=== PATIENT | male | born 1940 | race Caucasian/White ===

== ENCOUNTER 2017-06-02 06:51 | Emergency (ER) | payer OTHER ==
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
[2017-06-02] MEDS ORDERED: LET GEL TOPICAL 1 EA SYR TP ONE ×2 (06:56→07:05)
[2017-06-02] MEDS ORDERED: CEPHALEXIN 500 MG CAP PO ONE (07:03)
[2017-06-02 07:04] VITALS: RESP 18
[2017-06-02 07:36] VITALS: BP 155/78; PULSE 82; TEMP 98.1; O2SAT 96
== END 2017-06-02 07:39 | disposition home or self-care (01) ==
LOC: CED 06:51
PROC: 0HQCXZZ Repair Left Upper Arm Skin, External Approach (ICD-10-PCS; principal; 2017-06-02)
DX: S41.112A Laceration without foreign body of left upper arm, initial encounter (principal); I10 Essential (primary) hypertension; F17.210 Nicotine dependence, cigarettes, uncomplicated; Z85.828 Personal history of other malignant neoplasm of skin; V18.2XXA Unspecified pedal cyclist injured in noncollision transport accident in nontraffic accident, initial encounter

== ENCOUNTER → 2017-06-02 | Outpatient (CLI) | payer OTHER | LOC: FIMAGING 15:13 | PROVIDERS: ATTEND Physician Assistant Surgical | DX: S22.42XA Multiple fractures of ribs, left side, initial encounter for closed fracture (principal) ==